=== PATIENT | male | born 1985 | race Two or more races ===

== ENCOUNTER 2016-07-24 14:55 | Emergency (ER) | payer OTHER ==
[~2016-07-24] VITALS: Ht 165.1 cm; Wt 59.0 kg
--- NOTE | 2016-07-24 15:53 | PHYS DOC ---
Adult General Chief Complaint Chief Complaint: LACERATION/AVULSION HPI HPI Patient is a 30 year old male who presents with right middle finger laceration , patient states he got cut accidentally by a ceiling vent. Review of Systems Review of Systems Constitutional: Denies fever or chills [] Eyes: Denies change in visual acuity, redness, or eye pain [] HENT: Denies nasal congestion or sore throat [] Musculoskeletal: Denies back pain or joint pain [] Integument: Right middle finger laceration Neurologic: Denies headache, focal weakness or sensory changes [] Endocrine: Denies polyuria or polydipsia [] Current Medications Current Medications Current Medications Medications (Trade) Dose Ordered Sig/Danna Start Time Stop Time Status Last Admin Dose Admin Diphtheria/ Tetanus/Acell Pertussis (Boostrix) 0.5 ml ONCE ONCE 07/24/16 16:15 07/24/16 16:16 DC Lidocaine/Sodium Bicarbonate (Buffered Lidocaine 1%) 20 ml 1X ONCE 07/24/16 16:00 07/24/16 16:04 DC 07/24/16 16:03 20 ML Allergies Allergies Allergies Coded Allergies Type Severity Reaction Last Updated Verified No Known Drug Allergies 07/24/16 No Physical Exam Physical Exam Constitutional: Well developed, well nourished, no acute distress, non-toxic appearance. [] HENT: Normocephalic, atraumatic, bilateral external ears normal, oropharynx moist, no oral exudates, nose normal. [] Eyes: PERRLA, EOMI, conjunctiva normal, no discharge. [] Neck: Normal range of motion, no tenderness, supple, no stridor. [] Skin: Right middle finger with a laceration at the tip of the finger approximately 2 cm long. There is no obvious tendon involvement. Full range of motion to the right middle finger including flexion and extension of the finger at the MIP PIP and DIP joints. Adequate medial radial sensation to the right middle finger. +2 right radial pulse. Cap refill less than 2 seconds the right upper extremity. Back: No tenderness, no CVA tenderness. [] Extremities: No tenderness, no cyanosis, no clubbing, ROM intact, no edema. [] Neurologic: Alert and oriented X 3, normal motor function, normal sensory function, no focal deficits noted. [] Psychologic: Affect normal, judgement normal, mood normal. [] Current Patient Data Vital Signs Vital Signs Date Time Temp Pulse Resp B/P (MAP) Pulse Ox O2 Delivery O2 Flow Rate FiO2 07/24/16 16:00 98.8 82 20 97 Room Air 98.8 EKG EKG [] Radiology/Procedures Radiology/Procedures Indication: First degree laceration to the right middle finger Procedure: The patient was placed in the appropriate position and anesthesia around the laceration was 1% buffered lidocaine. The laceration was cleaned with 100 ML of normal saline and explored for foreign bodies which were not found. Betadine was used to clean the laceration. The area was then closed with 5 interrupted sutures using 4. 0 vicryl. The wound was covered with nonstick dressing Total repaired wound length: Approximately 2 cm long Other Items:none The patient tolerated the procedure well Complications: none Course & Med Decision Making Course & Med Decision Making Pertinent Labs and Imaging studies reviewed. (See chart for details) Patient has right middle finger laceration that was closed by me as noted in procedures with dissolvable sutures. He was given tetanus in the ED. Neosporin recommended to the area. Provided return precautions. Discharged in stable condition. Dragon Disclaimer Dragon Disclaimer This electronic medical record was generated, in whole or in part, using a voice recognition dictation system. Departure Departure Impression: Primary Impression: Laceration of right middle finger Disposition: 01 HOME, SELF-CARE Condition: STABLE Patient Instructions: Laceration Care, Adult Additional Instructions: You were seen for right middle finger laceration. Keep the area clean and dry. Apply Neosporin to the area twice a day. Monitor the area for signs or symptoms of infection including increased redness warmth or odor drainage from the area and return to the ED if they occur. Your stitches are dissolvable. They will fall off and disappear in two weeks. DAYO JOHN [employer] Jul 24, 2016 15:53
[2016-07-24 16:00] VITALS: BP 129/86
[2016-07-24] MEDS ORDERED: LIDOCAINE 1% / SOD BICARB 8.4% 20 ML VIAL. IJ ONE (16:00)
[2016-07-24] MEDS ORDERED: DIPHTH,PERTUSS(ACELL),TET TOX 0.5 ML DISP.SYRIN. VAX IM ONE (16:15)
== END 2016-07-24 16:42 | disposition home or self-care (01) ==
LOC: ER 14:55
DX: S61.212A Laceration without foreign body of right middle finger without damage to nail, initial encounter (principal); W26.8XXA Contact with other sharp object(s), not elsewhere classified, initial encounter; Y93.89 Activity, other specified; Y92.89 Other specified places as the place of occurrence of the external cause; Y99.8 Other external cause status
CPT/HCPCS: 12001; 90471; 90715; 99283-25